=== PATIENT | female | born 1945 | race Caucasian/White ===

== ENCOUNTER 2019-12-10 08:42 | Outpatient (REF) | payer MEDICARE, OTHER, SELFPAY ==
[2019-12-10 10:15] LABS: MANUAL DIFF FLAG NO
[2019-12-10 10:30] LABS: Basophils Absolute Auto 0.1 X10*3/uL (0.0-0.2); Basophils Percent Auto 0.8 % (0-2); Eosinophils Absolute Auto 0.4 X10*3/uL (0.0-0.4); Hematocrit 41.5 % (37-47); Hemoglobin 13.7 g/dl (12.0-16.0); Imm Gran Abs Auto 0.01 X10*3/uL (0.00-0.03); Imm Gran Pct Auto 0.2 % (0.0-0.4); Lymphocytes Percent Auto 32.2 % (20-40); Mean Corpuscular Hemoglobin 30.6 pg (27.0-33.0); Mean Corpuscular Volume 92.6 fL (80-98); Mean Platelet Volume 12.6 fL (9.4-12.3); Monocytes Absolute Auto 0.6 X10*3/uL (0.1-1.2); Monocytes Percent Auto 9.4 % (2-11); Neutrophils Absolute Auto 3.1 X10*3/uL (2.0-8.3); Neutrophils Percent Auto 51.4 % (45-73); Platelet Count 243 X10*3/uL (160-400); Red Blood Count 4.48 X10*6/uL (4.20-5.50); Red Cell Distribution Width 13.7 % (11.0-16.0); White Blood Count 6.1 X10*3/uL (4.8-10.8)
[2019-12-10 11:04] LABS: Alanine Aminotransferase 31 U/L (0-31); Alkaline Phosphatase 142 U/L (39-117); Anion Gap 13 (12-20); Aspartate Amino Transferase 26 U/L (5-31); Bilirubin Total 0.7 mg/dL (0.0-1.0); Blood Urea Nitrogen 16 mg/dL (9-16); Calcium 9.1 mg/dL (8.4-10.2); Carbon Dioxide 28 mmol/L (22-29); Chloride 105 mmol/L (96-108); Cholesterol 242 mg/dL; Estimated Glomerular Filt Rate > 60; Glucose Fasting 93 mg/dL (60-99); HDL Cholesterol 46 mg/dL; LDL Cholesterol Calculated 166 mg/dl; Potassium 4.7 mmol/l (3.3-5.1); Sodium 141 mmol/L (135-145); Total Protein 6.7 g/dL (6.5-8.0); Triglycerides 150 mg/dL
[2019-12-10 11:26] LABS: Thyroid Stimulating Hormone 5.21 mIU/mL (0.32-4.0)
[2019-12-10 15:12] LABS: Estimated Average Glucose 114 mg/dL; Hemoglobin A1c % 5.6 %
== END 2019-12-10 08:43 | disposition home or self-care (01) ==
LOC: HO.10HDL 08:42
PROVIDERS: Visit Provider Nurse Practitioner Family
DX: I10 Essential (primary) hypertension (principal); E78.00 Pure hypercholesterolemia, unspecified; E03.9 Hypothyroidism, unspecified; Z68.30 Body mass index [BMI] 30.0-30.9, adult; Z83.3 Family history of diabetes mellitus
CPT/HCPCS: 36415; 80053; 80061; 83036; 84443; 85025

== ENCOUNTER 2020-05-19 09:42 | Outpatient (REF) | payer MEDICARE, OTHER, SELFPAY ==
[2020-05-19 10:46] LABS: MANUAL DIFF FLAG NO
[2020-05-19 11:00] LABS: Basophils Absolute Auto 0.1 X10*3/uL (0.0-0.2); Eosinophils Absolute Auto 0.4 X10*3/uL (0.0-0.4); Eosinophils Percent Auto 5.1 % (0-4); Hematocrit 42.4 % (37-47); Hemoglobin 13.8 g/dl (12.0-16.0); Imm Gran Abs Auto 0.03 X10*3/uL (0.00-0.03); Imm Gran Pct Auto 0.4 % (0.0-0.4); Lymphocytes Percent Auto 26.8 % (20-40); Mean Corpuscular HGB Conc 32.5 g/dl (31.0-35.0); Mean Corpuscular Hemoglobin 29.9 pg (27.0-33.0); Mean Platelet Volume 12.5 fL (9.4-12.3); Monocytes Absolute Auto 0.7 X10*3/uL (0.1-1.2); Monocytes Percent Auto 9.2 % (2-11); Neutrophils Absolute Auto 4.2 X10*3/uL (2.0-8.3); Neutrophils Percent Auto 57.5 % (45-73); Platelet Count 235 X10*3/uL (160-400); Red Blood Count 4.61 X10*6/uL (4.20-5.50); Red Cell Distribution Width 13.9 % (11.0-16.0); White Blood Count 7.3 X10*3/uL (4.8-10.8)
[2020-05-19 11:25] LABS: Alanine Aminotransferase 28 U/L (0-31); Albumin Level 3.9 g/dL (3.5-5.0); Alkaline Phosphatase 153 U/L (39-117); Anion Gap 15 (12-20); Aspartate Amino Transferase 24 U/L (5-31); Bilirubin Total 0.4 mg/dL (0.0-1.0); Blood Urea Nitrogen 15 mg/dL (9-16); Calcium 9.3 mg/dL (8.4-10.2); Carbon Dioxide 26 mmol/L (22-29); Chloride 105 mmol/L (96-108); Cholesterol 254 mg/dL; Estimated Glomerular Filt Rate > 60; Glucose Fasting 104 mg/dL (60-99); HDL Cholesterol 47 mg/dL; LDL Cholesterol Calculated 172 mg/dl; Potassium 4.6 mmol/L (3.3-5.1); Sodium 141 mmol/L (135-145); Triglycerides 177 mg/dL
[2020-05-19 11:26] LABS: Free T4 (Free Thyroxine) 0.98 ng/dL (0.71-1.85); Thyroid Stimulating Hormone 2.29 uIU/mL (0.32-4.0)
== END 2020-05-19 09:43 | disposition home or self-care (01) ==
LOC: HO.10HDL 09:42
PROVIDERS: Visit Provider Nurse Practitioner Family
DX: E03.9 Hypothyroidism, unspecified (principal); I10 Essential (primary) hypertension; E78.00 Pure hypercholesterolemia, unspecified
CPT/HCPCS: 36415; 80053; 80061; 84439; 84443; 85025

== ENCOUNTER 2020-11-03 10:57 | Outpatient (REF) | payer MEDICARE, OTHER, SELFPAY ==
--- NOTE | ~2020-11-03 | MM_ITS ---
EXAMINATION: MM SCREENING DIGITAL BREAST TOMOSYNTHESIS, BILATERAL CLINICAL INFORMATION: Screening. Asymptomatic. The lifetime risk of breast cancer based on the Tyrer-Cuzick Model is 3.2%. COMPARISON: Mammography: September 21, 2019 and studies dating back to July 09, 2011 TECHNIQUE: Digital breast tomosynthesis is performed in both the craniocaudal and mediolateral oblique views along with computer-aided detection (CAD). Synthesized 2D images are generated from the tomosynthesis. FINDINGS: The breasts are almost entirely fatty (ACR BI-RADS breast composition Category a). There are no significant masses, abnormal calcifications, or other abnormalities. MM/MM tomosynthesis screening BI IMPRESSION: There are no significant changes from prior study. ASSESSMENT: BI-RADS 1: Negative RECOMMENDATION: Routine annual mammography screening. This patient's information was entered into a reminder system with a target due date for their next mammogram.
== END 2020-11-03 10:58 | disposition home or self-care (01) ==
LOC: HO.MAMMO 10:57
PROVIDERS: PCP Nurse Practitioner; Visit Provider Nurse Practitioner
DX: Z12.31 Encounter for screening mammogram for malignant neoplasm of breast (principal)
CPT/HCPCS: 77063; 77067

== ENCOUNTER 2021-01-25 09:19 | Outpatient (REF) | payer MEDICARE, OTHER, SELFPAY ==
[2021-01-25 10:36] LABS: Anion Gap 9 (12-20); Blood Urea Nitrogen 18 mg/dL (9-16); Calcium 9.6 mg/dL (8.4-10.2); Carbon Dioxide 30 mmol/L (22-29); Chloride 108 mmol/L (96-108); Cholesterol 248 mg/dL; Estimated Glomerular Filt Rate > 60; Glucose Fasting 94 mg/dL (60-99); HDL Cholesterol 46 mg/dL; LDL Cholesterol Calculated 170 mg/dl; Potassium 4.7 mmol/L (3.3-5.1); Sodium 142 mmol/L (135-145); Triglycerides 161 mg/dL
[2021-01-25 10:42] LABS: ~HepC Num1 0.21 S/CO (0.00-0.79); ~Hepatitis C Antibody Nonreactive (Nonreactive)
== END 2021-01-25 09:20 | disposition home or self-care (01) ==
LOC: HO.10HDL 09:19
PROVIDERS: Visit Provider Nurse Practitioner
DX: I10 Essential (primary) hypertension (principal); E03.9 Hypothyroidism, unspecified; Z11.59 Encounter for screening for other viral diseases
CPT/HCPCS: 36415; 80048; 80061; 84443; 86803

== ENCOUNTER 2021-07-25 09:12 | Outpatient (REF) | payer MEDICARE, OTHER, SELFPAY ==
[2021-07-25 11:04] LABS: Anion Gap 14 (12-20); Blood Urea Nitrogen 19 mg/dL (9-16); Calcium 9.6 mg/dL (8.4-10.2); Carbon Dioxide 27 mmol/L (22-29); Chloride 103 mmol/L (96-108); Cholesterol 273 mg/dL; Estimated Glomerular Filt Rate > 60; Glucose Random 103 mg/dL (60-115); HDL Cholesterol 51 mg/dL; LDL Cholesterol Calculated 192 mg/dl; Potassium 4.9 mmol/L (3.3-5.1); Sodium 139 mmol/L (135-145); Triglycerides 152 mg/dL
== END 2021-07-25 09:13 | disposition home or self-care (01) ==
LOC: HO.10HDL 09:12
PROVIDERS: Visit Provider Nurse Practitioner
DX: I10 Essential (primary) hypertension (principal); E78.5 Hyperlipidemia, unspecified
CPT/HCPCS: 36415; 80048; 80061

== ENCOUNTER 2021-12-05 09:07 | Outpatient (REF) | payer MEDICARE, OTHER, SELFPAY ==
--- NOTE | ~2021-12-05 | MM_ITS ---
EXAMINATION: MM SCREENING DIGITAL BREAST TOMOSYNTHESIS, BILATERAL CLINICAL INFORMATION: Screening. Asymptomatic. The lifetime risk of breast cancer based on the Tyrer-Cuzick Model is 2.8%. COMPARISON: Mammography: November 03, 2020 and studies dating back to July 26, 2015 TECHNIQUE: Digital breast tomosynthesis is performed in both the craniocaudal and mediolateral oblique views along with computer-aided detection (CAD). Synthesized 2D images are generated from the tomosynthesis. FINDINGS: There are scattered areas of fibroglandular density (ACR BI-RADS breast composition Category b). There are no significant masses, abnormal calcifications, or other abnormalities. MM/MM tomosynthesis screening BI IMPRESSION: No significant changes ASSESSMENT: BI-RADS 1: Negative RECOMMENDATION: Routine annual mammography screening. This patient's information was entered into a reminder system with a target due date for their next mammogram.
== END 2021-12-05 09:08 | disposition home or self-care (01) ==
LOC: HO.MAMMO 09:07
PROVIDERS: Visit Provider Nurse Practitioner
DX: Z12.31 Encounter for screening mammogram for malignant neoplasm of breast (principal)
CPT/HCPCS: 77063; 77067

== ENCOUNTER 2022-01-31 11:44 | Outpatient (REF) | payer MEDICARE, OTHER, SELFPAY ==
[2022-01-31 13:59] LABS: Alanine Aminotransferase 28 U/L (0-31); Albumin Level 4.4 g/dL (3.5-5.0); Alkaline Phosphatase 149 U/L (39-117); Aspartate Amino Transferase 24 U/L (5-31); Bilirubin Direct 0.3 mg/dL (0.0-0.5); Total Protein 7.6 g/dL (6.5-8.0)
[2022-01-31 14:57] LABS: Bilirubin Total 0.8 mg/dL (0.0-1.0)
== END 2022-01-31 11:45 | disposition home or self-care (01) ==
LOC: HO.10HDL 11:44
PROVIDERS: Visit Provider Nurse Practitioner
DX: E78.5 Hyperlipidemia, unspecified (principal)
CPT/HCPCS: 36415; 80076

== ENCOUNTER 2022-02-19 08:35 | Outpatient (REF) | payer MEDICARE, OTHER, SELFPAY ==
[2022-02-19 11:48] LABS: Alkaline Phosphatase 144 U/L (39-117); Gamma Glutamyl Transpeptidase 28 U/L (7-33); Phosphorus 3.4 mg/dL (2.7-4.5)
[2022-02-19 12:07] LABS: Thyroid Stimulating Hormone 2.57 uIU/mL (0.32-4.0); Vitamin D 25-OH Total 33.7 ng/mL (>30)
[2022-02-20 04:59] LABS: HBsAGNum1 0.27 S/CO (0.00-0.99); Hepatitis B Surface Antigen Negative (Negative); ~HepC Num1 0.16 S/CO (0.00-0.79); ~Hepatitis C Antibody Nonreactive (Nonreactive)
[2022-02-20 11:24] LABS: Calcium (PTHI) 9.5 mg/dL (8.6-10.4); PTHI 49 pg/mL (16-77)
[2022-02-22 21:33] LABS: Alkaline Phosphatase Bone 19.1 mcg/L (5.6-29.0)
== END 2022-02-19 08:36 | disposition home or self-care (01) ==
LOC: HO.10HDL 08:35
PROVIDERS: Visit Provider Nurse Practitioner
DX: R74.8 Abnormal levels of other serum enzymes (principal)
CPT/HCPCS: 36415; 82306; 82977; 83970; 84075; 84100; 84443; 86803; 87340

== ENCOUNTER 2022-07-02 09:45 | Outpatient (REF) | payer MEDICARE, OTHER, SELFPAY ==
[2022-07-02 11:51] LABS: Alkaline Phosphatase 125 U/L (39-117); Anion Gap 11 (12-20); Blood Urea Nitrogen 16 mg/dL (9-16); Calcium 10.3 mg/dL (8.4-10.2); Carbon Dioxide 29 mmol/L (22-29); Chloride 107 mmol/L (96-108); Cholesterol 139 mg/dL; Estimated Glomerular Filt Rate > 60; Glucose Fasting 89 mg/dL (60-99); HDL Cholesterol 47 mg/dL; LDL Cholesterol Calculated 71 mg/dl; Potassium 4.7 mmol/L (3.3-5.1); Sodium 142 mmol/L (135-145); Triglycerides 106 mg/dL
== END 2022-07-02 09:46 | disposition home or self-care (01) ==
LOC: HO.WFDLDS 09:45
PROVIDERS: Visit Provider Nurse Practitioner
DX: Z13.89 Encounter for screening for other disorder (principal)
CPT/HCPCS: 36415; 80048; 80061; 84075

== ENCOUNTER 2022-12-11 09:13 | Outpatient (REF) | payer MEDICARE, OTHER, SELFPAY | END 2022-12-11 09:14 | disposition home or self-care (01) | LOC: HO.MAMMO 09:13 | PROVIDERS: PCP Nurse Practitioner; Visit Provider Nurse Practitioner | DX: Z12.31 Encounter for screening mammogram for malignant neoplasm of breast (principal) | CPT/HCPCS: 77063; 77067 ==

== ENCOUNTER → 2022-12-11 09:15 | Outpatient (BNV) | payer MEDICARE, OTHER, SELFPAY | PROVIDERS: PCP Nurse Practitioner; Visit Provider Radiology Diagnostic Radiology | DX: Z12.31 Encounter for screening mammogram for malignant neoplasm of breast (principal) | CPT/HCPCS: 77063; 77067 ==

== ENCOUNTER 2022-12-30 11:36 | Outpatient (REF) | payer MEDICARE, OTHER, SELFPAY ==
[2022-12-30 13:34] LABS: Alanine Aminotransferase 18 U/L (0-31); Alkaline Phosphatase 148 U/L (39-117); Anion Gap 11 (12-20); Aspartate Amino Transferase 23 U/L (5-31); Bilirubin Total 0.9 mg/dL (0.0-1.0); Blood Urea Nitrogen 17 mg/dL (9-16); Calcium 10.4 mg/dL (8.4-10.2); Carbon Dioxide 29 mmol/L (22-29); Chloride 107 mmol/L (96-108); Cholesterol 150 mg/dL (<200); Estimated Glomerular Filt Rate > 60; Glucose Random 95 mg/dL (60-115); HDL Cholesterol 50 mg/dL (>40); LDL Cholesterol Calculated 79 mg/dL (<100); Potassium 4.8 mmol/L (3.3-5.1); Sodium 142 mmol/L (135-145); Total Protein 7.6 g/dL (6.5-8.0); Triglycerides 109 mg/dL (<150)
== END 2022-12-30 11:37 | disposition home or self-care (01) ==
LOC: HO.10HDL 11:36
PROVIDERS: Visit Provider Nurse Practitioner
DX: I10 Essential (primary) hypertension (principal); E78.5 Hyperlipidemia, unspecified
CPT/HCPCS: 36415; 80053; 80061

== ENCOUNTER 2023-02-06 11:10 | Outpatient (REF) | payer MEDICARE, OTHER, SELFPAY ==
[2023-02-07 11:53] LABS: Calcium, Ionized 5.3 mg/dL (4.7-5.5)
== END 2023-02-06 11:11 | disposition home or self-care (01) ==
LOC: HO.10HDL 11:10
PROVIDERS: Visit Provider Nurse Practitioner
DX: E83.52 Hypercalcemia (principal)
CPT/HCPCS: 36415; 82330

== ENCOUNTER 2023-07-18 10:31 | Outpatient (REF) | payer MEDICARE, OTHER, SELFPAY ==
[2023-07-18 14:18] LABS: Anion Gap 13 (12-20); Blood Urea Nitrogen 17 mg/dL (9-16); Calcium 10.1 mg/dL (8.4-10.2); Carbon Dioxide 27 mmol/L (22-29); Chloride 107 mmol/L (96-108); Cholesterol 151 mg/dL (<200); Estimated Glomerular Filt Rate > 60; Glucose Random 108 mg/dL (60-115); HDL Cholesterol 48 mg/dL (>40); LDL Cholesterol Calculated 74 mg/dL (<100); Potassium 4.9 mmol/L (3.3-5.1); Sodium 142 mmol/L (135-145); Triglycerides 145 mg/dL (<150)
[2023-07-18 14:21] LABS: Thyroid Stimulating Hormone 1.15 uIU/mL (0.32-4.0)
== END 2023-07-18 10:32 | disposition home or self-care (01) ==
LOC: HO.10HDL 10:31
PROVIDERS: Visit Provider Nurse Practitioner
DX: E03.9 Hypothyroidism, unspecified (principal); I10 Essential (primary) hypertension
CPT/HCPCS: 36415; 80048; 80061; 84443

== ENCOUNTER 2023-12-17 09:35 | Outpatient (REF) | payer MEDICARE, OTHER, SELFPAY ==
--- NOTE | ~2023-12-17 | MM_ITS ---
EXAMINATION: MM SCREENING DIGITAL BREAST TOMOSYNTHESIS, BILATERAL CLINICAL INFORMATION: Screening. Asymptomatic. COMPARISON: Mammography: Comparison is made with available priors TECHNIQUE: Digital breast mammography with tomosynthesis is performed in both the craniocaudal and mediolateral oblique views along with computer-aided detection (CAD). FINDINGS: There are scattered areas of fibroglandular density (ACR BI-RADS breast composition Category b). There are no significant masses, abnormal calcifications, or other abnormalities. MM/MM tomosynthesis screening BI IMPRESSION: No mammographic evidence of malignancy. ASSESSMENT: BI-RADS BI-RADS 1 - Negative RECOMMENDATION: Routine annual mammography screening. 1 year F/U This examination should not preclude the clinical evaluation of a suspicious palpable abnormality. This patient's information was entered into a reminder system with a target due date for their next mammogram. Electronically signed by: Peyton Dupree DO 12/26/2023 08:14 AM JUVENCIO
== END 2023-12-17 09:36 | disposition home or self-care (01) ==
LOC: HO.MAMMO 09:35
PROVIDERS: PCP Nurse Practitioner; Visit Provider Nurse Practitioner
DX: Z12.31 Encounter for screening mammogram for malignant neoplasm of breast (principal)
CPT/HCPCS: 77063; 77067

== ENCOUNTER → 2023-12-17 09:45 | Outpatient (BNV) | payer MEDICARE, OTHER, SELFPAY | PROVIDERS: PCP Nurse Practitioner; Visit Provider Internal Medicine | DX: Z12.31 Encounter for screening mammogram for malignant neoplasm of breast (principal) | CPT/HCPCS: 77063; 77067 ==

== ENCOUNTER 2024-01-22 11:46 | Outpatient (REF) | payer MEDICARE, OTHER, SELFPAY ==
[2024-01-22 14:13] LABS: Anion Gap 11 (12-20); Blood Urea Nitrogen 21 mg/dL (9-16); Calcium 9.9 mg/dL (8.4-10.2); Carbon Dioxide 27 mmol/L (22-29); Chloride 108 mmol/L (96-108); Estimated Glomerular Filt Rate > 60; Glucose Random 95 mg/dL (60-115); Sodium 142 mmol/L (135-145)
[2024-01-22 14:14] LABS: Estimated Average Glucose 126 mg/dL; Hemoglobin A1C 146.6833 umol/L; Total Hemoglobin (HGBA1C) 3507.5334 umol/L
== END 2024-01-22 11:47 | disposition home or self-care (01) ==
LOC: HO.WFDLDS 11:46
PROVIDERS: Visit Provider Nurse Practitioner
DX: I10 Essential (primary) hypertension (principal); R73.03 Prediabetes
CPT/HCPCS: 36415; 80048; 83036

== ENCOUNTER 2024-07-08 10:05 | Outpatient (REF) | payer MEDICARE, OTHER, SELFPAY ==
--- OUTSIDE RECORDS SUMMARY | 2024-07-08 10:28 | XMS_ITS ---
Author Organization [facility] Address [address] [place] [address] Care Team Providers Care Agriculture Specialist Name Role Phone Lissy Carey Primary Care Provider Tung Green [phone] Allergies Allergen (clinical drug ingredient) Drug/Non Drug Allergy documented on EMR Reaction Allergy Type Onset Date Status amoxicillin Amoxicillin Unknown Drug Allergy Act zohra insect stings (uncoded) Unknown Allergy Active REASON FOR VISIT patient presents today for colon screening Medications Medication SIG (Take, Route, Frequency, Duration) Notes Start Date End Date Status LORazepam 0.5 MG TAKE 1 TABLET DAILY NEEDED Oral for 90 Days Active Fiber Active Atorvastatin Calcium 40 MG 1 tablet Orally Once a day Active Omeprazole 40 MG TAKE 1 CAPSULE DAILY Oral for 90 Days Active Synthroid 125 MCG TAKE 1 TABLET DAILY Oral for 90 Days Active Valsartan 320 MG TAKE 1 TABLET DAILY Oral for 90 Days Active Multi Vitamin/Minerals women 50 + Active Calcium + D 2per day Active Vitamin B12 Active Qunol Ultra CoQ10 Ac tive Equate Plus vision formula 50+ Active PreserVision AREDS 2 Active Allergy Active Social History Alcohol Screen Question Answer Notes Did you have a drink contain ing alcohol in the past year? Yes How often did you have a dri nk containing alcohol in the past year? 2 to 3 times a week (3 points) How many drinks did you have on a typical day when you were drinking in the past year? 1 or 2 drinks (0 point) How often did you have 6 or more drinks on one occasion in the past year? Never (0 point) Points 3 Interpretation Positive Section Notes: Nonsmoker; occasional alcoho l Vital Signs Blood pressure systolic 111 mm Hg 07/09/19 25 Blood pressure diastolic 77 mm Hg 025 Height 62 in 07/08/2024 Weight 168 lbs 07/08/2024 BMI 30.72 kg/m2 07/08/2024 Procedures Procedure Date Ordered Date Performed Result Body Sit e COLONOSCOPY 07/08/2024 N/A Encounters Encounter Location Date Provider Diagnosis [facility] [address] [place] [address] 07/08/2024 Tung Allen History of adenomato us polyp of colon Z86.010 ; Encounter for screening for malignant neoplasm of colon Z12.11 and Preprocedural examination Z01.818 Assessments Encounter Date Diagnosis (ICD Code) Assessment Notes Treatment Notes Treatment Clinical Notes Section Notes 07/08/2024 History of adenomatous polyp of colon (ICD-10 - Z86.010) Overall, Vanessa appears quite well. She is not having any new or worrisome GI complaints. I did recommend a follow-up colonoscopy for further screening given her history of a previous tubular adenoma and her last colonoscopy being over 5 years ago. We did review the rationale for this in regard to colon cancer prevention. Full consent has been obtained for this, including risks of bleeding and perforation. The procedure will be done with monitored anesthesia care. Vanessa was comfortable with this plan. Thank you again for allowing me to participate in Vanessa's care. I shall continue to keep you advised of her progress. 07/08/2024 Encounter for screening for malignant neoplasm of colon (ICD-10 - Z12.11) Overall, Vanessa appears quite well. She is not having any new or worrisome GI complaints. I did recommend a follow-up colonoscopy for further screening given her history of a previous tubular adenoma and her last colonoscopy being over 5 years ago. We did review the rationale for this in regard to colon cancer prevention. Full consent has been obtained for this, including risks of bleeding and perforation. The procedure will be done with monitored anesthesia care. Vanessa was comfortable with this plan. Thank you again for allowing me to participate in Vanessa's care. I shall continue to keep you advised of her progress. 07/08/2024 Preprocedural examination (ICD-10 - Z01.818) Overall, Vanessa appears quite well. She is not having any new or worrisome GI complaints. I did recommend a follow-up colonoscopy for further screening given her history of a previous tubular adenoma and her last colonoscopy being over 5 years ago. We did review the rationale for this in regard to colon cancer prevention. Full consent has been obtained for this, including risks of bleeding and perforation. The procedure will be done with monitored anesthesia care. Vanessa was comfortable with this plan. Thank you again for allowing me to participate in Vanessa's care. I shall continue to keep you advised of her progress. Plan Of Treatment Pending Test Test Name Order Date COLONOSCOPY 07/08/2024 Next Appt Details Provider Name:Tung Allen , 10/06/2024 07:30:00 AM, [address] [place] [address], [address], [place], [address], Progress Notes * RADHIKA OSMANOB:1945 (78 yo F)Acc No.[id number]:07/08/2024 Progress Notes Patient:?VANESSA OSMAN Provider:?Tung Allen MD :1945???Age:78 Y???Sex:Female D ate:07/08/2024 Address:[address] [place], [place] [id number] Pcp:Lissy Carey Subjective: * Chief Complaints: * ???1. Patient presents today for colon screening. * HPI: ???incontinence:? I saw Vanessa in the office today for evaluation of her personal history of a tubular adenoma of the colon and need for colorectal cancer screening. I last saw Vanessa in 2019, at which time she underwent a follow-up screening colonoscopy that was negative for any recurrent polyps. She did have a tubular adenoma removed in 2011. She presently feels very well. She enjoys a good appetite and denies any significant heartburn or dysphagia. Her bowel movements have been regular and without any signs of bleeding. She denies abdominal pain, unintentional weight loss, nor jaundice. She denies any known family history of colorectal cancer. * Medical History:?HTN, Hyperl ipidemia, Gallstones found incidentally on U/S done for elevated LFT's--reviewed again at the 07/07/18 OV, Occasional GERD-uses Prilosec occasionally, Denies VA,DM,CVA,Lung disease,renal disease, Hypothyroidism, Screening colonoscopy January 2012 with a removal of a small tubular adenoma and hyperplastic polyp, Negative screening colonoscopy in 2019. * Surgical History:?Partial th yroidectomy , teeth extractions . * Family History:?Father: dece ased.?Mother: , Had colon cancer in her 90's.? * Social History:?Tobacco Use:?Tobacco Use/Smoking?Are you a: nonsmoker.?Drugs/Alcohol:?Alcohol Screen?Did you have a drink containing alcohol in the past year??Yes,?How often did you have a drink containing alcohol in the past year??2 to 3 times a week (3 points),?How many drinks did you have on a typical day when you were drinking in the past year??1 or 2 drinks (0 point),?How often did you have 6 or more drinks on one occasion in the past year??Never (0 point),?Points?3,?Interpretation?Positive.?Miscellaneous:?Marital status: . Occupation: retired. ???Nonsmoker; occasional alcohol. * Medications:?Taking Allergy , Taking PreserVision AREDS 2 , Taking Equate Plus , Notes to Pharmacist: vision formula 50+, Taking Qunol Ultra CoQ10 , Taking Vitamin B12 , Taking Calcium + D , Notes to Pharmacist: 2per day, Taking Multi Vitamin/Minerals , Notes to Pharmacist: women 50 +, Taking Atorvastatin Calcium 40 MG Tablet 1 tablet Orally Once a day , Taking Fiber , Taking Valsartan 320 MG Tablet TAKE 1 TABLET DAILY Oral , Taking Synthroid 125 MCG Tablet TAKE 1 TABLET DAILY Oral , Taking Omeprazole 40 MG Capsule Delayed Release TAKE 1 CAPSULE DAILY Oral , Taking LORazepam 0.5 MG Tablet TAKE 1 TABLET DAILY NEEDED Oral , Discontinued Levothroid .125 mg 1 po qd , Discontinued hydroCHLOROthiazide 25mg 1 po qd , Discontinued Losartan Potassium 25 MG Tablet 1 tablet Orally Once a day , Discontinued Vitamin B Complex , Discontinued Vitamin D , Medication List reviewed and reconciled with the patient * Allergies:?Amoxicillin, inse ct stings. Objective: * Vitals:?Wt:168lbs, Ht: 62 in , BMI: 30.72 Index, BP:111/77mm Hg, Wt-k.2. Assessment: * Assessment: 1.?History of adenomatous po lyp of colon - Z86.010 (Primary)???2.?Encounter for screening for malignant neoplasm of colon - Z12.11???3.?Preprocedural examination - Z01.818??? Overall, Vanessa appears quit e well. She is not having any new or worrisome GI complaints. I did recommend a follow-up colonoscopy for further screening given her history of a previous tubular adenoma and her last colonoscopy being over 5 years ago. We did review the rationale for this in regard to colon cancer prevention. Full consent has been obtained for this, including risks of bleeding and perforation. The procedure will be done with monitored anesthesia care. Vanessa was comfortable with this plan. Thank you again for allowing me to participate in Vanessa's care. I shall continue to keep you advised of her progress. Plan: * Treatment: 2.?Encounter for screening for malignant neoplasm of colon?Procedure: COLONOSCOPY* with MACsched for 10/06/24 at 7:30 ammiralax * Procedure Codes:?55428 DIAGN OSTIC COLONOSCOPY * Preventive Medicine:? ??Urinary Incontinence:?Urinary Incontinence?Assessment:?Absent,?Plan of care documented:?No, reason not specified.? ??Screenings:?Fall Risk Screening?Fall Risk Assessment:?No falls in the past year,?Screening:?No falls in the past year,?Assessment:?Not performed, no reason specified,?Plan of Care:?Not documented, no reason specified.? * * The named appointment provid er may or may not be the originator of this progress note, and it is not deemed complete until electronically signed by the appointment provider. Sign off status: Pending * Provider:?Tung Allen MD Date:? 025 Generated for Tatum leone/Donny/eTransmitting on:?07/08/2024 10:28 AM EDT History and Physical Notes * HPI (History of Present Illness) Category Sub-Category Detail Notes Category Not es incontinence I saw Vanessa in the office today for evaluation of her personal history of a tubular adenoma of the colon and need for colorectal cancer screening. I last saw Vanessa in 2018, at which time she underwent a follow-up screening colonoscopy that was negative for any recurrent polyps. She did have a tubular adenoma removed in 2011. She presently feels very well. She enjoys a good appetite and denies any significant heartburn or dysphagia. Her bowel movements have been regular and without any signs of bleeding. She denies abdominal pain, unintentional weight loss, nor jaundice. She denies any known family history of colorectal cancer.
--- OUTSIDE RECORDS SUMMARY | 2024-07-08 10:28 | XMS_ITS | Data Portability ---
Author Organization [place] - [employer], [employer], [facility] Address [address] [place] [address] Care Team Providers Care Pill Maker Name Role Phone ROSE PÉREZ Referring Provider Unavailable LISSY FRANCO Primary Care Provider LAKIA BARNHART Store Team Leader Assessment No assessment recorded. Plan of Treatment Reminders Order Date Submit Date Provider Last Modified By Organization Details Last Modified Time Details Appointments ESTABLISH ED OV 30 2025 02:15P M DR ROSE PÉREZ Not available Not available Not available Lab None recorded. Referral safety glass installer referral - First avail provider for [place] with [place] allergies . Would like to be tested. 2022 023 RADHA Chew MD ([facility] [place]), [address] [facility] [facility], [address], [place], [address], 09/11/2022 17:00:58 Procedures None recorded. Surgeries None recorded. Imaging None recorded. Medication Orders None recorded. Patient TargetsNo targets recorded. Patient Instructions Encounter Date Encounter Id Patient Instructions Last Modified By Organization Details Last Modified Time 03/31/2024 [id number] medical record request* - I am specifically missing her AWE with labs visit. Please send this record to me. Thank you very much. Dr. Rose martinez Not available 06/14/2024 09:27:06 We discussed you r hypertension: - Continue taking Valacartan 05/06 as prescribed for blood pressure management. - Your blood pressure readings in the office may be elevated due to white coat syndrome. Continue monitoring your blood pressure at home and share any concerning trends with your primary care provider (PCP) in [place]. We discussed your hyperlipidemia: - Continue taking Atorvastatin 40 mg as prescribed for cholesterol management. We discussed your hypothyroidism: - Continue taking Levothyroxine 125 mcg as prescribed. It appears you are using the generic version, which is cost-effective. We discussed your anxiety: - You have a prescription for Lorazepam, which you use occasionally. No changes were made to this medication. We discussed your bone health: - Your most recent bone density scan from January 2021 showed mild to moderate osteopenia. No osteoporosis was noted. - Your calcium levels have been normal since discontinuing calcium supplements, and no concerns about hyperparathyroidism were identified. Continue following your current regimen. We discussed your general health: - Your lungs are clear, and your heart rhythm is regular with a slight murmur, which is expected for your age. - There is no swelling in your ankles. Maintaining a healthy weight and staying active are important for your overall health. Follow-up: - Continue care with your PCP in [place], including routine monitoring of your thyroid, cholesterol, and bone health. - Your next mammogram is due in November, as you have them annually. Ensure this is scheduled with your PCP. - If you experience any new or worsening symptoms, please contact our office or your PCP. [email or web address] Not available 03/31/2024 17:22:03 Reason for Referral Guest Relations Associate Referral for Envir onmental allergy First avail provider for [place] with [place] allergies. Would like to be tested. Referring Physician: Rose Pérez, Family Medicine, Encounter Date: 09/11/2022 Problems Name Problem SNOMED Code Status Onset Date Resolution Date Notes Provider Name and Address Organization Details Recorded Time Hyperlipidemia 72799676 Active [address], [place], [address], [facility], [facility] 3 15:18:32 Hypothyroidism 70532469 Active [address], [place], [address], [facility], [facility] 3 15:18:32 Hypertensive disorder 62897786 Active [address], [place], [address], [facility], [facility] 3 15:18:32 Anxiety disorder 926700931 Active [address], [place], [address], [facility], [facility] 3 15:18:39 Environmental allergy 341017779 Active 2022 Season al, worse in [place]. [address], [place], [address], [facility], [facility] 3 15:22:22 Problem Notes None recorded. Procedures Surgical History Date Name Laterality Status Provider Name and Address Organization Details Recorded Time 12/12/19 24 Date of Last Mammogram completed Grace Mattson [facility] 03/31/2024 14:44:47 11/18/19 24 mammography completed [address], [place], [address], [facility], [facility] 03/31/2024 15:04:36 01/18/20 21 screening for osteoporosis completed Rose [address], [place], [address], [facility], [facility] 03/31/2024 15:07:00 08/17/18 80 thyroidectomy completed Jessica Villarreal [facility] 09/11/2022 14:36:02 Imaging Results None recorded. Procedure Notes None recorded. Medical Equipment None Reported. Allergies Allergen ID Allergen Name Allergen Category Reaction Reaction Severity Criticality Documentation Date Start Date Code Code System Note Provider Name and Address Organization Details Recorded Time 4902986 amlodipin e medicatio n edema moderate high 09/11/2022 [address], [place], [address], [facility], [facility] 3 15:50:32 5685753 amoxicill in medicatio n itching rash Not available Not available Not available 09/11/2022 723 RxNorm Jessica perez [facility], [facility] 3 14:14:09 Medications Name Sig Start Date Stop Date Status Note LastModified by Organization Details LastModified Time atorvastati n 40 mg tablet active Not Available Not Available Not Available omeprazole 40 mg capsule,del ayed release Take 1 capsule every day by oral route. active Not Available Not Available No t Available lorazepam 0.5 mg tablet Take 1 tablet as needed by oral route as needed. active Not Available Not Available No t Available levothyroxi ne 125 mcg tablet Take 1 tablet every day by oral route. active Not Available Not Available No t Available valsartan 320 mg tablet active Not Available Not Available Not Available tacrolimus 0.03 % topical ointment APPLY A THIN LAYER TO THE AFFECTED AREA(S) BY TOPICAL ROUTE 2 TIMES PER DAY ; RUB IN GENTLY AND COMPLETEL Y active Not Available Not Available No t Available mupirocin 2 % topical ointment active Not Available Not Available Not Available amlodipine 10 mg-valsarta n 160 mg tablet 09/11 completed Not Available Not Available Not Available amlodipine 5 mg-valsarta n 160 mg tablet 09/11 completed Not Available Not Available Not Available Vitals Date Recorded Body weight Body mass index (BMI) Body height Respiratory rate Body temperature Heart rate Oxygen saturation Oxygen saturation in Arterial blood by Pulse oximetry Systolic blood pressure Diastolic blood pressure Provider Name and Address Organization Details Last Updated DateTime 3 95192.5 5 g 30.5 kg/m2 158.75 cm 16 /min 98 [degF] 78 /min 97 % 97 % 136 mm[Hg] 64 mm[Hg] Jessica elliott [facility], [facility] 3 14:26:03 Date Recorded Body weight Body mass index (BMI) Body height Body temperature Heart rate Oxygen saturation Oxygen saturation in Arterial blood by Pulse oximetry Systolic blood pressure Diastolic blood pressure Provider Name and Address Organization Details Last Updated DateTime 5 39261.6 7 g 30.3 kg/m2 158.75 cm 97.4 [degF] 71 /min 97 % 97 % 132 mm[Hg] 74 mm[Hg] Grace Mattson [facility], [facility] 14:48:30 Social History Question Answer Notes LastModified by Organizat ion Details LastModified Time Tobacco Smoking Status Never Smoker Jessica Villarreal [facility] [place] - [facility], [facility] 09/11/2022 14:14:10 Do You Have An Advance Directive? Yes Information not available 09/11/2022 Is Your Home Air Conditioned? Yes Information not available 09/11/2022 Are You Currently Sexually Active With Anyone Who Has Traveled (within The Last 12 Weeks) To A Zika-affected Area? No Information not available 09/11/2022 Is Blood Transfusion Acceptable In An Emergency? Yes Information not available 09/11/2022 What Is Your Level Of Caffeine Consumption? Moderate Information not available 09/11/2022 In The 14 Days Before Symptom Onset, Have You Had Close Contact With A Laboratory-confir med COVID-19 While That Case Was Ill? No Information not available 09/11/2022 In The 14 Days Before Symptom Onset, Have You Had Close Contact With A Person Who Is Under Investigation For COVID-19 While That Person Was Ill? No Information not available 09/11/2022 Have You Been To An Area Known To Be High Risk For COVID-19? No Information not available 09/11/2022 What Type Of Diet Are You Following? REGULAR Information not available 09/11/2022 Have You Processed Blood Or Body Fluids From An Ebola Virus Disease Patient Without Appropriate PPE? No Information not available 09/11/2022 Do You Reside In Or Have You Traveled To An Area Where Ebola Virus Transmission Is Active? No Information not available 09/11/2022 What Is The Highest Grade Or Level Of School You Have Completed Or The Highest Degree You Have Received? AI20920-8 Information not available 09/11/2022 Do You Have An Electrostatic Air Filter? No Information not available 09/11/2022 Have There Been Any Changes To Your Family Or Social Situation? No Information no t available 09/11/2022 What Is The Fluoride Status Of Your Home? Fluoridated Information not available 09/11/2022 Which Of Your Hands Is Dominant? Right Information not available 09/11/2022 Do You Have A Humidifier? No Information not available 09/11/2022 Where Do You Live? [facility] Information not available 09/11/2022 Alcohol Use 1-2 Per Month Informati on not available 09/11/2022 Do You Smoke? No Informatio n not available 09/11/2022 Do You Have A Medical Power Of Air Liaison And Special Staff? Yes Information not available 09/11/2022 What Was The Date Of Your Most Recent Tobacco Screening? 03/31/2024 [place] Information not available 03/31/2024 What Is Your Relationship Status? Information not available 09/11/2022 Do You Use Your Seat Belt Or Car Seat Routinely? Yes Information not available 09/11/2022 Are You Sexually Active? Yes Information not available 09/11/2022 Do You Have Smoke And Carbon Monoxide Detectors In Your Home? Yes Information not available 09/11/2022 Are You Passively Exposed To Smoke? No Information no t available 09/11/2022 Are There Any Smokers In Your House? No Information not available 09/11/2022 Do You Use Sunscreen Routinely? Yes Information not available 09/11/2022 Do You Have Any Dietary Restrictions? No Information not available 09/11/2022 Sex: Female Functional Status Question Answer Note LastModified by Organizat ion Details LastModified Time How many times per week do you consume alcohol? 1-2 times per week Information not available 09/11/2022 Do you use any illicit or recreational drugs? No Information not available 09/11/2022 What is your level of alcohol consumption? Occasional Information not available 09/11/2022 Do you or have you ever used smokeless tobacco? Never used smokeless tobacco Information not available 09/11/2022 Have you been exposed to chemicals or toxins? No Information not available 09/11/2022 Do you have transportation difficulties? No Information not available 09/11/2022 Are you able to care for yourself? Yes Information n ot available 09/11/2022 What is your exercise level? Moderate Information not available 09/11/2022 Mental Status None recorded. Family History Nothing Reported. Medical History Condition Response Amputation (location) N Arthritis Y Diabetes N Allergies (other than meds) Y Gynecological History Statement/Question Response Menses Monthly N STIs/STDs N If Post Menopausal, Age at Menopause 54 Date of Last Mammogram 12/12/2023 Age at First Child 26 Obstetrics History GPAL:G 0 P 0 0 0 0 Immunizations Vaccine Type Date Status Note Provider Nam e and Address Organization Details Recorded Time influenza, unspecified formulation 11/20/2023 completed Grace Mattson [place], [place] [facility] 03/31/2024 14:44:18 Past Encounters Encounter ID Performer Location Encounter Start Date Encounter Closed Date Diagnosis/Indication Diagnosis SNOMED-CT Code Diagnosis ICD10 Code Diagnosis Note [id number] Rose Pérez MD [address] [address] 09/11/2022 14:05:57 09/11/2022 16:05:45 Environmental allergy 222495445 T78.49XA New patient today with [place] allergies. Would like to be tested. Hypertensive disorder 38 620032 I10 New patient today. Blood pressure under control on current medication , continue Hyperlipidemia 76905436 E78.5 current LDL 71 on ator 40. Hypothyroidism 27531582 E03.9 New patient to [place] today, no change to current thyroid medication [id number] Rose Pérez MD [address] [address] 03/31/2024 14:08:11 03/31/2024 15:28:04 Patient medical record not available [id number] Z76.89 - Patient's medical records from [facility] are not currently available. - Initiated a request for missing medical records from Dr. Lissy Franco in [facility] n. Essential hypertension 10867987 I10 - Patient has white coat syndrome.- Currently on Valsartan 320/20 mg for blood pressure management .- Blood pressure monitoring and management to continue with PCP in [facility]. Mixed hyperlipidemia 267 321000 E78.2 - Currently on Atorvastat in 40 mg daily.- Lipid levels to be monitored by PCP in [facility]. Hypothyroidism 41369683 E03.9 - Currently on Levothyrox ine 125 mcg daily.- Thyroid function tests to be monitored by PCP in [facility]. Generalize d anxiety disorder 21188388 F41.1 - Patient carries a prescripti on for Lorazepam, used occasional ly.- No current need for additional anxiety management . Osteopenia 569881327 M85 .80 - Bone density scan on 01/31/2021 showed mild to moderate osteopenia .- Calcium levels were 10.3, advised to stop calcium supplement s by her PCP in [facility]. There was no calcium that I saw higher than this in her historical records- PTH level was 49, within normal range.- Liver function tests and alkaline phosphatas e levels were normal.- Continue weight-ricardo ring exercises and monitor bone health. Health Concerns Section Related Observation LastModified by Organization Detai ls LastModified Time None Recorded Concern Status LastModified by Organization Details LastModified Time None Recorded Advance Directives Directive Y: Payers Insurance Date Sequence Insurance Name Policy Number Policy Hernandez Covered Member ID Hernandez Member ID Guarantor Name 04/28/2024 1 [place] Vanessa Saxena [id number] Vanessa Saxena 04/28/2024 2 [employer] - SENIOR SERVICES PLAN F (MEDICARE SUPPLEMENT) [id number] Vanessa Saxena [id number] Vanessa Saxena Notes Date Note Type Note Provider Name and Address Organization Details Recorded Time 09/11/2022 text/html Establishing Car e for Chronic ConditionsReported bypatient.Notes:1. Currently residing in [place] comes down in the 4-5 months out of the year and occasionally in the summer to visit their daughter who is a teacher. She currently has a PCP is [place] that they wish to continue with, PAULA Ingram will be doing her yearly physical examinations, lab work and following any chronic disease. They will be using Dr. Pérez as needed while they are down in [place].2. HTN - patient reports good BP readings at home and has white coat syndrome. Of note she takes her BP meds at night because when she was taking them in the morning she found that she was crashing feeling fatigued in the afternoon but after switching to taking valsartan 320mg at night this is a non-issue.2. Allergies - patient reports that while in [place] her allergies seem to flair up and would like testing done in [place] for more area specific testing.3. Medication review - Patient would like her atorvastatin 40 reviewed. She was on 20mg but in 06/07 she had a triglyceride level of 177 which prompted the change to 40mg. Since then triglyceride level have been better 161 (02/06) and then 106 (07/09) at her last lab draw.4. Hard stick - Patient has to go to outside facilities to get stuck but does not require US guided. Rose Pérez MD [address], [place], [address], [facility] 09/11/2022 15:53:06 03/31/2024 text/html The patient is a 78-year-old female, with a history of HTN, HLD, hypothyroidism, anxiety, and osteopenia, presenting for follow-up. The [place] a [place] who also resides in [place] and continues care with her PCP there. She reports a history of white coat syndrome and allergies, for which she was referred to an safety glass installer. She found out that she has no allergies in [place]. She is currently taking amlodipine/valsartan 3/20 mg for blood pressure management, atorvastatin 40 mg for hyperlipidemia, and levothyroxine 125 mcg for hypothyroidism. She also has a prescription for lorazepam for anxiety, which she uses occasionally, noting less frequent use when she is more active. She reports that her last bone density scan was in January 2021, which showed mild to moderate osteopenia. She also mentions that her last mammogram was in November and was reported as normal for her age. She was advised to stop taking calcium supplements due to an abundance of calcium. She denies any issues with her current medications and has not reported any new symptoms or concerns. Rose Pérez MD [address], [place], [address], [facility] 03/31/2024 17:22:51 OBGyn Episode No OBEpisode recorded.
--- OUTSIDE RECORDS SUMMARY | 2024-07-08 10:28 | XMS_ITS | Patient Health Record ---
Author Organization [facility] Address [address] [place] [address] Care Team Providers Care Campaign Specialist Name Role Phone Lissy Carey Primary Care Provider Tung Green Unavailable [phone] Allergies Allergen (clinical drug ingredient) Drug/Non Drug Allergy documented on EMR Reaction Allergy Type Onset Date Status amoxicillin Amoxicillin Unknown Drug Allergy Act zohra insect stings (uncoded) Unknown Allergy Active Reason For Referral No Information Medications Medication SIG (Take, Route, Frequency, Duration) Notes Start Date End Date Status Fiber Active Atorvastatin Calcium 40 MG 1 tablet Orally Once a day Active Multi Vitamin/Minerals women 50 + Active Calcium + D 2per day Active Vitamin B12 Active Qunol Ultra CoQ10 Ac tive Equate Plus vision formula 50+ Active LORazepam 0.5 MG TAKE 1 TABLET DAILY NEEDED Oral for 90 Days Active PreserVision AREDS 2 Active Allergy Active Omeprazole 40 MG TAKE 1 CAPSULE DAILY Oral for 90 Days Active Synthroid 125 MCG TAKE 1 TABLET DAILY Oral for 90 Days Active Valsartan 320 MG TAKE 1 TABLET DAILY Oral for 90 Days Active Immunizations Vaccine Route Administration Date Status Comme nts Influenza Unknown 10/18/2017 Administered Social History Alcohol Screen Question Answer Notes [...] Positive Section Notes: Nonsmoker; occasional alcoho l Nonsmoker; occasional alcoho l Nonsmoker; occasional alcoho l Problems Problem Type SNOMED Code ICD Code Onset Dates Problem Status W/U Status Risk Notes Problem 518813888 Encounter for screening for malignant neoplasm of colon (Z12.11) Active confirmed Problem 723936873 History of adenomatous polyp of colon (Z86.010) Active confirmed Problem 750339322229017 Preprocedural examination (Z01.818) Active confirmed Problem 159656948 Long-term use of high-risk medication (Z79.899) Active confirmed Problem 48146157678738060 FPC current use of diuretic (Z79.899) Active confirmed Vital Signs Blood pressure diastolic 77 mm Hg 07/08/2024 Height 62 in 07/08/2024 Blood pressure systolic 111 mm Hg 07/08/2024 Weight 168 lbs 07/08/2024 BMI 30.72 kg/m2 07/08/2024 Procedures Procedure Date Ordered Date Performed Result Body Sit e COLONOSCOPY 07/08/2024 N/A Encounters Encounter Location Date Provider Diagnosis [facility] [address] [place] [address] 07/08/2024 Tung Allen History of adenomato us polyp of colon Z86.010 ; Encounter for screening for malignant neoplasm of colon Z12.11 and Preprocedural examination Z01.818 Assessments Encounter Date Diagnosis (ICD Code) Assessment Notes Treatment Notes Treatment Clinical Notes Section Notes 07/08/2024 Encounter for screening for malignant neoplasm [...] keep you advised of her progress. 07/08/2024 History of adenomatous polyp of colon [...] Test Test Name Order Date COLONOSCOPY 07/08/2024 Future Test Test Name Order Date COLONOSCOPY 12/27/2011 COLONOSCOPY 07/07/2018 Next Appt Details Provider Name:Tung Allen , 10/06/2024 07:30:00 AM, [address] [place] [address], [address], [place], [address], Insurance Providers Payer Name Payer Address Payer Phone Subscriber Number Group Number Insured Name Patient Relationship to Insured Coverage Start Date Coverage End Date MED[place]ARE OF [place] [address] [facility] [place] [address] [id number] MIHAI OSMANON Self - patient is the insured 2 [employer] Insurance (SpecifiedBy) [address] [place] [address] [phone] [id number] VANESSA OSMAN Self - patient is the insured Medical (General) History Medical History History ICD Code HTN Hyperlipidemia Gallstones found incidentall y on U/S done for elevated LFT's--reviewed again at the 07/07/18 OV Occasional GERD-uses Prilosec occasional ly Denies GA,DM,CVA,Lung disease,renal dise ase Hypothyroidism Screening colonoscopy Decemb er 2011 with a removal of a small tubular adenoma and hyperplastic polyp Negative screening colonoscopy in 2019 Surgical History Surgery Date(Month/Year) teeth extractions Partial thyroidectomy
--- OUTSIDE RECORDS SUMMARY | 2024-07-08 10:28 | XMS_ITS | Clinical Summary ---
Author Organization [facility] Address [address] [place] [address] Care Team Providers Care Insurance Claim Representative Name Role Phone Unavailable Primary Care Provider Unavailabl e Allergies Active Allergy Reactions Criticality Noted Date Comments Amoxicillin 06/27/2017 Vancomycin 06/27/2017 Medications Medication Sig Dispensed Refills Start Date End Date Status Multiple Vitamin (MULTI-VITAMIN) Orally 0 Active mometasone (ELOCON) 0.1 % ointment APPLY TO LIPS TWICE A DAY - 3 TIMES A DAY NEEDED FOR FLARES 0 11/12/2018 Active levothyroxine (SYNTHROID, LEVOXYL) tablet 125 mcgIndications:Hypothy roidism, unspecified type Take 1 tablet (125 mcg total) by mouth daily. 90 tablet 6 02/21/2020 Active LORazepam (ATIVAN) 0.5 MG tabletIndications:Anxi ety Take 1 tablet (0.5 mg total) by mouth every 6 (six) hours as needed. 60 tablet 0 02/21/2020 Active losartan (COZAAR) tablet 25 mgIndications:Essentia l hypertension Take 1 tablet (25 mg total) by mouth daily. 90 tablet 3 07/06/2020 Active Active Problems Problem Noted Date Diagnosed Date Anxiety 06/30/2018 Hypercholesterolemia 12/30/2017 GERD (gastroesophageal reflux disease) Hypertension Hypothyroidism Immunizations Name Administration Dates Next Due DTaP 06/27/2014 Influenza Quad (High Dose Fl uzone) 0.7mL >65Yrs (HD-IIV4) 11/17/2019 Influenza Trivalent (Fluzone High Dose) 0.7 mL (65yrs &>) 11/17/2018,11/10/2017 Influenza Trivalent (Fluzone /Afluria) 5.0mL Multi-dose Vial 11/27/2016 Pneumococcal Conjugate PCV13 06/27/2014 Family History Medical History Relation Name Comments Cancer Father skin Diabetes Father with neuropathy Cancer Mother colon mass Relation Name Status Comments Father Mother Social History Tobacco Use Types Packs/Day Years Used Date Smoking Tobacco: Never Smokeless Tobacco: Never Alcohol Use Standard Drinks/Week Comments Yes 0 (1 standard drink = 0.6 oz pur e alcohol) social Sex and Gender Information Value Date Recorded Sex Assigned at Female 01/26/2019 8:59 AM EST Gender Identity Female 01/26/2019 8:59 AM EST Sexual Orientation Straight 01/26/2019 8: 59 AM EST Job Start Date Occupation Industry Not on file Not on file Not on file Last Filed Vital Signs Vital Sign Reading Time Taken Comments Blood Pressure 130/80 07/06/2020 9:33 AM EDT Pulse 72 07/06/2020 9:33 AM EDT Temperature 36.8 ??C (98.2 ??F) 07/06/2020 9:33 AM ED T Respiratory Rate 16 07/06/2020 9:33 AM EDT Oxygen Saturation 98% 07/06/2020 9:33 AM EDT Inhaled Oxygen Concentration - - Weight 76.4 kg (168 lb 6.4 oz) 07/06/2020 9:33 A M EDT Height 157.5 cm (5' 2 ) 07/06/2020 9:33 AM EDT Body Mass Index 30.8 07/06/2020 9:33 AM EDT Plan of Treatment Health Maintenance Due Date Last Done Comments Hepatitis C Screening 1945 COVID-19 Vaccine (#1) 05/16/1946 Preventative Health Evaluation 1964 Shingrix-Zoster Vaccine (1 of 2) 1996 Osteoporosis Screening (DEXA Scan) 11/16/2011 Pneumococcal Vaccine (2 of 2 - PPSV23 or PCV20) 06/28/2015 06/27/2014 Depression Screening 01/27/2020 01/26/2019 Fall Risk Assessment 01/27/2020 01/26/2019 BMI Counseling 07/06/2021 07/06/2020, 01/17, 06/30/2018 RSV Adult > 60+ Yrs or (1 - 1-dose 75+ series) 2021 Influenza Vaccine (#1) 2023 0, 11/17/2019, 11/17/2018, Additional history exists DTap / Tdap / Td (2 - Tdap) 06/27/2024 06/27/2014 Hepatitis B Vaccines Aged Out No long er eligible based on patient's age to complete this topic RSV Ped < 20 months Aged Out No longe r eligible based on patient's age to complete this topic
[2024-07-08 13:51] LABS: Estimated Average Glucose 123 mg/dL; Hemoglobin A1C 153.1076 umol/L; Hemoglobin A1c % 5.9 % (<6.0); Total Hemoglobin (HGBA1C) 3734.2169 umol/L
[2024-07-08 13:59] LABS: Anion Gap 15 (12-20); Blood Urea Nitrogen 19 mg/dL (9-16); Carbon Dioxide 26 mmol/L (22-29); Chloride 107 mmol/L (96-108); Cholesterol 148 mg/dL (<200); Estimated Glomerular Filt Rate > 60; Glucose Random 95 mg/dL (60-115); HDL Cholesterol 55 mg/dL (>40); LDL Cholesterol Calculated 76 mg/dL (<100); Potassium 4.6 mmol/L (3.3-5.1); Sodium 143 mmol/L (135-145); Triglycerides 85 mg/dL (<150)
[2024-07-08 14:14] LABS: Thyroid Stimulating Hormone 0.44 uIU/mL (0.32-4.0)
== END 2024-07-08 10:06 | disposition home or self-care (01) ==
LOC: HO.10HDL 10:05
DX: R73.03 Prediabetes (principal); I10 Essential (primary) hypertension; E78.00 Pure hypercholesterolemia, unspecified; E03.9 Hypothyroidism, unspecified
CPT/HCPCS: 36415; 80048; 80061; 83036; 84443

== ENCOUNTER 2024-10-06 06:22 | Day surgery (SDC) | payer MEDICARE, OTHER, SELFPAY ==
--- OUTSIDE RECORDS SUMMARY | 2024-09-13 15:45 | XMS_ITS | Patient Health Record ---
Author Organization [facility] Address [address] [place] [address] Care Team Providers Care Burrer Operator Name Role Phone Lissy Carey Primary Care Provider Tung Green Unavailable [phone] Allergies Allergen (clinical drug ingredient) Drug/Non Drug [...] Problem Status W/U Status Risk Notes Problem 789220717 Encounter for screening for malignant neoplasm of colon (Z12.11) Active confirmed Problem 811713095 History of adenomatous polyp of colon (Z86.010) Active confirmed Problem 863727818679572 Preprocedural examination (Z01.818) Active confirmed Problem 617360687 Long-term use of high-risk medication (Z79.899) Active confirmed Problem 19769470853640441 longterm current use of diuretic (Z79.899) Active confirmed Vital Signs Blood pressure diastolic 77 mm Hg 07/08/2024 Height 62 in 07/08/2024 Blood pressure systolic 111 mm Hg 07/08/2024 Weight 168 lbs 07/08/2024 BMI 30.72 kg/m2 07/08/2024 Procedures Procedure Date Ordered Date Performed Result Body Sit e COLONOSCOPY 07/08/2024 N/A Encounters Encounter Location Date Provider Diagnosis [facility] [address] [place] [address] 07/08/2024 Tung Allen History of adenomato us polyp of colon Z86.010 ; Preprocedural examination Z01.818 and Encounter for screening for malignant neoplasm of colon Z12.11 Assessments Encounter Date Diagnosis (ICD Code) Assessment [...] Provider Name:Tung Allen , 10/06/2024 07:30:00 AM, [address] [place] [address] , [place], [place], [phone], Insurance Providers Payer Name Payer Address Payer Phone Subscriber Number Group Number Insured Name Patient Relationship to Insured Coverage Start Date Coverage End Date MEDICARE OF [place] [address] [place] [address] [id number] MIHAI OSMANON Self - patient is the insured 2 [employer] ([place]) [address] [place] [address] [id number] VANESSA OSMAN Self - patient is the insured Medical (General) History Medical History History ICD Code HTN Hyperlipidemia Gallstones found incidentall y on U/S done for elevated LFT's--reviewed again at the 07/07/18 OV Occasional GERD-uses Prilosec occasional ly Denies NE,DM,CVA,Lung disease,renal dise ase Hypothyroidism Screening colonoscopy Decemb er 2011 with a removal of a small tubular adenoma and hyperplastic polyp Negative screening colonoscopy in 2019 Surgical History Surgery Date(Month/Year) teeth extractions Partial thyroidectomy
--- OUTSIDE RECORDS SUMMARY | 2024-09-13 15:45 | XMS_ITS | Clinical Summary ---
Author Organization [facility] Address [address] [address] Phone Care Team Providers Care Manager Wealth Management Name Role Phone Lissy Carey NP Primary Care Provider [phone] Allergies Active Allergy Reactions Criticality Noted Date Comments Amoxicillin Unknown 08/29/2015 Clindamycin Hcl Unknown 08/29/2015 Vancomycin 06/27/2017 Medications potassium chloride (KLOR-CON) 20 mEq packet Take 20 mEq by mouth daily. with food Active losartan (COZAAR) 25 MG tablet Take 1 tablet by mouth daily. Active hydroCHLOROthia zide (HYDRODIURIL) 25 MG tablet Take 1 tablet by mouth daily. Active DOCOSAHEXANOIC ACID/EPA (FISH OIL ORAL) Active levothyroxine (SYNTHROID, LEVOTHROID) 125 MCG tablet Take 1 tablet by mouth daily. Active Medication-Free Text Vitamin E 1000 UNIT Tablet, Sig: Orally Active Medication-Free Text ASA Active Medication-Free Text Glucosamine Active multivitamin per tablet Orally Active MV,CALCIUM,MIN/ IRON/FOLIC/VITK (MULTI FOR HER ORAL) Orally Active valsartan (DIOVAN) 320 MG tablet Take 1 tablet by mouth every morning. 3 Active atorvastatin (LIPITOR) 40 MG tablet Take 40 mg by mouth daily. Active omeprazole (PRILOSEC) 40 MG capsule Take 40 mg by mouth daily. Active LORazepam (ATIVAN) 0.5 MG tablet Take 0.5 mg by mouth every 6 (six) hours as needed for anxiety. Active vitamins A,C,E-zinc-scooter er (PRESERVISION AREDS) 4,296 mcg-226 mg-90 mg Cap Take 1 capsule by mouth 2 (two) times a day with meals. Active mupirocin (BACTROBAN) 2 % ointment Active albuterol 90 mcg/actuation inhaler Inhale 2 puffs into the lungs every 6 (six) hours as needed for wheezing. 18 g Active Active Problems No known active problems Family History Medical History Relation Comments CV disease Father 2 Cancer Father 2 Diabetes mellitus Father 2 Hypertension Father 2 Relation Status Comments Father 1 Father 2 Social History Tobacco Use Types Packs/Day Years Used Date Smoking Tobacco: Never Smokeless Tobacco: Never Tobacco Cessation:Counseling Given: Not Answered Alcohol Use Standard Drinks/Week Comments Yes 0 (1 standard drink = 0.6 oz pur e alcohol) Education Answer Date Recorded Are you interested in more education? Not on jaya e 10/26/2022 Are you concerned about learning? Not on file 10/26/2022 No 10/26/2022 No 10/26/2022 Digital Access Answer Date Recorded No 10/26/2022 No 10/26/2022 Reliable internet access at home? Not on file 10/26/2022 Device with a working camera? Not on file Comments Unknown Sex and Gender Information Value Date Recorded Sex Assigned at Not on file Legal Sex Female 10:37 PM EDT Gender Identity Not on file Sexual Orientation Not on file Last Filed Vital Signs Vital Sign Reading Time Taken Comments Blood Pressure 152/76 02/08/2023 10:05 AM EST Pulse 77 02/08/2023 10:05 AM EST Temperature 36.8 C (98.2 F) 02/08/2023 10:05 AM EST Respiratory Rate 18 02/08/2023 10:05 AM EST Oxygen Saturation 97% 02/08/2023 10:05 AM EST Inhaled Oxygen Concentration - - Weight 77.1 kg (170 lb) 02/08/2023 10:05 AM EST Height 157.5 cm (5' 2 ) 02/08/2023 10:05 AM EST Body Mass Index 31.09 02/08/2023 10:05 AM EST Plan of Treatment Health Maintenance Due Date Last Done Comments CREATININE LEVEL 1945 LIPID PANEL 1946 POTASSIUM LEVEL 1946 TSH LEVEL 1946 DEPRESSION SCREENING 1958 HEPATITIS C SCREENING 1964 ZOSTER VACCINES (1 of 2) 1996 OSTEOPOROSIS SCREENING INITIAL (ONE-TIME) 11/16/2011 PNEUMOCOCCAL VACCINES (50+ years) (2 of 2 - PPSV23) 11/06/2016 11/07/2015, 06/27/2014 RSV VACCINE (1 - 1-dose 75+ series) 2021 COVID-19 VACCINE (6 - 2023- season) 2023 12/10/2021, 06/22/2021, 11/23/2020, Additional history exists Adult Td,Tdap Booster 07/06/2031 07/05/2021, 016 SMOKING STATUS SCREENING (Once After 26 Yrs) Completed 02/08/2023 HEPATITIS A VACCINES Aged Out No long er eligible based on patient's age to complete this topic HIB VACCINES Aged Out No longer eligi ble based on patient's age to complete this topic MENINGOCOCCAL VACCINES (ACWY) Aged Out No longer eligible based on patient's age to complete this topic MENINGOCOCCAL VACCINES (B) Aged Out N o longer eligible based on patient's age to complete this topic Medical Devices Not on file Insurance [place] [id number] [facility] [employer]ION MEDICARE SUPPLEMENT MEDICARE PART A & B Member Subscriber Plan / Payer ( fective 2011-Present) Name:Adrien Saxenaon Member ID:[id number] Relation to Subscriber:Self Name:Vanessa Saxena Subscriber ID:[id number] Payer ID:[id number] Group ID:Not on file Type:Medicare Address: [employer] [address] MEDICARE SUPPLEMENT MEDICARE PART A & B Member Subscriber Plan / Payer ( fective 2011-Present) Name:Adrien Saxenaon Member ID:[id number] Relation to Subscriber:Self Name:Vanessa Saxena Subscriber ID:[id number] Payer ID:[id number] Group ID:Not on file Type:Medicare Address: [employer] [address] [place] [phone] MEDICARE PART A & B MEDICARE PART A & B [employer] MEDICARE SUPPLEMENT MEDICARE PART A & B MEDICARE PART A & B [email or web address] EXTENSION MEDICARE SUPPLEMENT MEDICARE PART A & B [email or web address] EX[employer]ION MEDICARE SUPPLEMENT MEDICARE PART A & B [facility] [employer]ION MEDICARE SUPPLEMENT Care Teams Manager Wealth Management Relationship Specialty Start Date End Date Lissy Carey NP [address] [place] [phone] [email or web address] PCP - General Nurse Practitioner 10/26/22 Additional Source Comments The information contained in this document represents components of the legal health record. It is not the complete legal health record.[facility]
--- OUTSIDE RECORDS SUMMARY | 2024-09-13 15:45 | XMS_ITS | Data Portability ---
Author Organization [place] - [employer], [employer], [facility] Address [address] [place] [address] Care Team Providers Care Offal Trimmer Name Role Phone ROSE PÉREZ Referring Provider Unavailable LISSY CAREY Primary Care Provider LAKIA BARNHART Straight Line Edger Assessment No assessment recorded. Plan of Treatment Reminders Order Date Submit Date Provider Last Modified By Organization Details Last Modified Time Details Appointments ESTABLISH ED OV 30 2025 02:15P M DR ROSE PÉREZ Not available Not available Not available Lab None recorded. Referral screen making technician referral - First avail provider for [place] with [place] allergies . Would like to be tested. 2022 023 RADHA Chew MD ([facility]), [address], [address], [place], [address], 09/11/2022 17:00:58 Procedures None recorded. Surgeries None recorded. Imaging None recorded. Medication Orders None recorded. Patient TargetsNo targets recorded. Patient Instructions Encounter Date Encounter Id Patient Instructions Last Modified By Organization Details Last Modified Time 03/31/2024 [id number] medical record request* - I am specifically [...] with your primary care provider (PCP) in [place]. We discussed your hyperlipidemia: - Continue taking [...] - Continue care with your PCP in [place], including routine monitoring of your thyroid, cholesterol, and bone health. - Your next mammogram is due in November, as you have them annually. Ensure this is scheduled with your PCP. - If you experience any new or worsening symptoms, please contact our office or your PCP. [email or web address] Not available 03/31/2024 17:22:03 Reason for Referral City [facility]anner Referral for Envir onmental allergy First avail provider for [place] with [place] allergies. Would like to be tested. Referring Physician: Rose Pérez, Family Medicine, Encounter Date: 09/11/2022 Problems Name Problem SNOMED Code Status Onset Date Resolution Date Notes Provider Name and Address Organization Details Recorded Time Hyperlipidemia 02169425 Active [address], [place], [address], [facility] - [employer] [facility], [employer] 3 15:18:32 Hypothyroidism 34548077 Active [address], [place], [address], [facility] - [facility], [facility] 3 15:18:32 Hypertensive disorder 18041713 Active [address], [place], [address], [facility], [facility] 3 15:18:32 Anxiety disorder 762563576 Active 2022 [address], [place], [address], [facility], [facility] 3 15:18:39 Environmental allergy 632523054 Active 2022 Season al, worse in [place]. Rose Min [address] [employer] [address], [place], [address], [facility], [facility] 3 15:22:22 Problem Notes None recorded. Procedures Surgical History Date Name Laterality Status Provider Name and Address Organization Details Recorded Time 12/12/19 24 Date of Last Mammogram completed Grace Mattson [facility] 03/31/2024 14:44:47 11/18/19 24 mammography completed Rose [address], [place], [address], [facility], [facility] 03/31/2024 15:04:36 01/18/20 21 screening for osteoporosis completed Rose Webbkler [employer], [place], [address], [facility], [facility] 03/31/2024 15:07:00 08/17/18 80 thyroidectomy completed Jessica Villarreal [facility] 09/11/2022 14:36:02 Imaging Results None recorded. Procedure Notes None recorded. Medical Equipment None Reported. Allergies Allergen ID Allergen Name Allergen Category Reaction Reaction Severity Criticality Documentation Date Start Date Code Code System Note Provider Name and Address Organization Details Recorded Time 7514919 amlodipin e medicatio n edema moderate high 09/11/2022 69224 RxNorm Rose Rivers[address], [place], [address], [facility], [facility] 3 15:50:32 2169382 amoxicill in medicatio n itching rash Not available Not available Not available 09/11/2022 723 RxNorm Jessica perez [place] - [facility], [facility] 3 14:14:09 Medications Name Sig Start [...] weight Body mass index (BMI) Body height Pain severity - 0-10 verbal numeric rating [Score] - Reported Body temperature Heart rate Oxygen saturation Oxygen saturation in Arterial blood by Pulse oximetry Systolic And Diastolic Provider Name and Address Organization Details Last Updated DateTime 5 25911.6 7 g 30.3 kg/m2 158.75 cm 0 97.4 [degF] 71 /min 97 % 97 % 132/74 mm[Hg] Grace Mattson [place] - [facility], [facility] 5 14:48:30 Date Recorded Body weight Body mass index (BMI) Body height Respiratory rate Pain severity - 0-10 verbal numeric rating [Score] - Reported Body temperature Heart rate Oxygen saturation Oxygen saturation in Arterial blood by Pulse oximetry Systolic And Diastolic Provider Name and Address Organization Details Last Updated DateTime 3 21148.5 5 g 30.5 kg/m2 158.75 cm 16 /min 0 98 [degF] 78 /min 97 % 97 % 136/64 mm[Hg] Jessica elliott [facility], [facility] 14:26:03 Social History Question Answer Notes LastModified by Organizat ion Details LastModified Time Tobacco Smoking Status Never Smoker Jessiacpravin Kwnogmichelle perez, [facility], [facility] 09/11/2022 14:14:10 Do You Have An [...] Or The Highest Degree You Have Received? [id number] Information not available 09/11/2022 Do You Have [...] not available 09/11/2022 Where Do You Live? [place] [facility] Information not available 09/11/2022 Alcohol Use 1-2 Per Month Informati on not available 09/11/2022 Do You Smoke? No [facility] In[facility] n not available 09/11/2022 Do You Have A Medical Power Of Regulatory Affairs Specialist? Yes Information not available 09/11/2022 What Was [...] 09/11/2022 Are you able to care for yourself independently? Yes Information not available 09/11/2022 What is your exercise level? Moderate Information not available 09/11/2022 Mental Status None recorded. Family History Nothing Reported. Medical History Condition Response Diabetes N Amputation (location) N Arthritis Y Allergies (other than meds) Y Gynecological History Statement/Question Response Menses Monthly N STIs/STDs N If Post Menopausal, Age at Menopause 54 Date of Last Mammogram 12/12/2023 Age at First Child 26 Obstetrics History GPAL:G 0 P 0 0 0 0 Immunizations Vaccine Type Date Status Note Provider Nam e and Address Organization Details Recorded Time influenza, unspecified formulation 11/20/2023 completed Grace Mattson [place], [place] - [facility], [facility] 03/31/2024 14:44:18 Past Encounters Encounter ID Performer Location Encounter Start Date Encounter Closed Date Diagnosis/Indication Diagnosis SNOMED-CT Code Diagnosis ICD10 Code Diagnosis Note [id number] Rose Pérez MD [facility] [address] [place] [address] 09/11/2022 14:05:57 09/11/2022 16:05:45 Environmental allergy 535266117 T78.49XA New patient today with [place] allergies. Would like to be tested. Hypertensive disorder 38 511772 I10 New patient today. Blood pressure under control on current medication , continue Hyperlipidemia 81734431 E78.5 current LDL 71 on ator 40. Hypothyroidism 66583261 E03.9 New patient to [place] today, no change to current thyroid medication [id number] [facility] [address] [place] [address] 03/31/2024 14:08:11 03/31/2024 15:28:04 Patient medical record not available [id number] Z76.89 - Patient's medical records from [facility] are not currently available. - Initiated a request for missing medical records from Dr. Lissy Carey in [facility] n. Essential hypertension 03728832 I10 - Patient has white coat syndrome.- Currently on Valsartan 320/20 mg for blood pressure management .- Blood pressure monitoring and management to continue with PCP in [facility]. Mixed hyperlipidemia 267 077087 E78.2 - Currently on Atorvastat in 40 mg daily.- Lipid levels to be monitored by PCP in [facility]. Hypothyroidism 14004495 E03.9 - Currently on Levothyrox ine 125 mcg daily.- Thyroid function tests to be monitored by PCP in [facility]. Generalize d anxiety disorder 28759781 F41.1 - Patient carries a prescripti on for Lorazepam, used occasional ly.- No current need for additional anxiety management . Osteopenia 010817632 M85 .80 - Bone density scan on 01/31/2021 showed mild to moderate osteopenia .- Calcium levels were 10.3, advised to stop calcium supplement s by her PCP in [facility]. There was no calcium that I [...] Name 04/28/2024 1 [place] Vanessa Saxena [id number] Vanessa Saxena 04/28/2024 2 [facility] (MEDICARE SUPPLEMENT) [id number] Vanessa Saxena [id number] Vanessa Saxena OBGyn Episode No OBEpisode recorded.
--- OUTSIDE RECORDS SUMMARY | 2024-09-13 15:45 | XMS_ITS | Clinical Summary ---
Author Organization [facility] Address [address] [place] [address] Care Team Providers Care Site Surveyor Name Role Phone Unavailable Primary Care Provider [...] 72 07/06/2020 9:33 AM EDT Temperature 36.8 C (98.2 F) 07/06/2020 9:33 AM EDT Respiratory Rate 16 07/06/2020 9:33 AM EDT [...] or (1 - 1-dose 75+ series) 2021 DTap / Tdap / Td (2 - Tdap) 06/27/2024 06/27/2014 Influenza Vaccine (#1) 2024 0, 11/17/2019, 11/17/2018, Additional history exists Hepatitis B Vaccines Aged Out No long er eligible based on patient's age to complete this topic RSV Ped < 20 months Aged Out No longe r eligible based on patient's age to complete this topic
[2024-10-04 14:21] VITALS: BMI 30.7
--- NOTE | 2024-10-05 08:40 | HO.ANESPROP2 ---
Documented by User: Vicky Sotelo NP 10/05/24 08:41 HPI - Anesthesia Eval Consult details Narrative: 78yo F for Colonoscopy [facility] Past Medical History Medical History Hypothyroid Hyperlipidemia HTN (hypertension) Surgical History Surgical History Hx of partial thyroidectomy H/O colonoscopy Social History Social History Household Members: Spouse Are you a primary healthcare economics manager to a significant other at home: No Do you presently have visiting nurse or other home services: No Patient Tobacco Use Status: Never used Tobacco Have you been hit, kicked, punched, or otherwise hurt by someone within the past year? If so, by whom?: No Are you DNR?: No Advance Directives: No Advance Directives Information Provided: Yes Poor oral hygiene: No Meds Allergies Allergy/AdvReac Type Severity Reaction Status Date / Time amoxicillin (Amoxicillin) Allergy Severe DIARRHEA Verified 10/06/24 06:46 Home Medications ?Medication ?Instructions ?Recorded ?Confirmed ?Last Taken ?Type atorvastatin 40 mg tablet 40 mg PO DAILY 10/04/24 10/04/24 Unknown History levothyroxine 125 mcg tablet 125 mcg PO DAILY 10/04/24 10/04/24 Unknown History (Synthroid) lorazepam 0.5 mg tablet 0.5 mg PO DAILY PRN Anxiety 10/04/24 10/04/24 Unknown History omeprazole 40 mg capsule,delayed 40 mg PO DAILY 10/04/24 10/04/24 Unknown History release valsartan 320 mg tablet 320 mg PO DAILY 10/04/24 10/04/24 Unknown History Exam Height,Weight and Vital Signs: Height 5 ft 2 in Weight 76.204 kg Assessment and Plan Assessment Anesthesia Assessment: Chart Reviewed Documented by User: Alec Fairbanks MD 10/06/24 07:21 PMFSH Past Medical History Medical History Hypothyroid Hyperlipidemia HTN (hypertension) Functional capacity: independent ambulation Family History Family history of problems with anesthesia: No Surgical History Surgical History Hx of partial thyroidectomy H/O colonoscopy History of Problems with Anesthesia: No Social History Social History Household Members: Spouse Are you a primary healthcare economics manager to a significant other at home: No Do you presently have visiting nurse or other home services: No Patient Tobacco Use Status: Never used Tobacco Have you been hit, kicked, punched, or otherwise hurt by someone within the past year? If so, by whom?: No Are you DNR?: No Advance Directives: No Advance Directives Information Provided: Yes Poor oral hygiene: No Meds Allergies Allergy/AdvReac Type Severity Reaction Status Date / Time amoxicillin (Amoxicillin) Allergy Severe DIARRHEA Verified 10/06/24 06:46 Home Medications ?Medication ?Instructions ?Recorded ?Confirmed ?Last Taken ?Type atorvastatin 40 mg tablet 40 mg PO DAILY 10/04/24 10/04/24 Unknown History levothyroxine 125 mcg tablet 125 mcg PO DAILY 10/04/24 10/04/24 Unknown History (Synthroid) lorazepam 0.5 mg tablet 0.5 mg PO DAILY PRN Anxiety 10/04/24 10/04/24 Unknown History omeprazole 40 mg capsule,delayed 40 mg PO DAILY 10/04/24 10/04/24 Unknown History release valsartan 320 mg tablet 320 mg PO DAILY 10/04/24 10/04/24 Unknown History Exam Exam Date and Time: 10/06/2024 Airway Mallampati Class: II TM Dist: >3cm Partial: Upper Loose/Missing/Broken Teeth: Yes (one tooth upper covered with prosthetic tooth) Heart: rrr Lungs: cta Assessment and Plan Final Anesthetic Review Family History of Problems with Anesthesia: No History of Problems with Anesthesia: No ASA Class: II Final Preanesthetic Review: No Changes in Pt Med Stat, Meds/Allgs Chart Reviewed, Consent Obtained/Reviewed and Anes Risks/Benef Reviewed Patient Risk: Low Procedure Risk: Low Anesthetic Plan Anesthetic Plan: MAC: Disposition: Standard PACU
[2024-10-06 06:44] VITALS: BMI 30.2
[2024-10-06 06:45] VITALS: BP 131/70; PULSE 108; RESP 18; TEMP 36.7; O2SAT 96
[2024-10-06] MEDS: Lactated Ringers 1,000 ML 100 ML IVCONT (06:51)
[2024-10-06 08:27] VITALS: PULSE 106; RESP 16; TEMP 36.9; O2SAT 96
--- NOTE | 2024-10-06 08:33 | PM.OP ---
Brief Operative Note Date of Service: 10/06/24 Pre-op diagnosis: Screening Post-op diagnosis: other (Diverticulosis) Procedure: Colonoscopy to the cecum and TI Surgeon: Tung Allen MD Anesthesia: MAC Was an [employer] Archeology Professor used for this Procedure?: No Estimated blood loss (mL): 0 Pathology: none sent Condition: stable Disposition: PACU
[2024-10-06 08:42] VITALS: BP 102/70; PULSE 110; RESP 20; TEMP 36.6; O2SAT 97
--- NOTE | 2024-10-06 08:55 | OP_ITS ---
DATE OF SERVICE: 10/06/2024 SURGEON: Tung Allen MD INDICATIONS: The patient presents for evaluation of a personal history of a tubular adenoma of the colon, family history of colon cancer, and need for colorectal cancer screening. Full consent was obtained from her for this, including risks of bleeding and perforation. PREOPERATIVE DIAGNOSIS: POSTOPERATIVE DIAGNOSIS: PROCEDURE PERFORMED: Colonoscopy to the cecum and terminal ileum. ESTIMATED BLOOD LOSS: COMPLICATIONS: ANESTHESIA: Medication used, monitored anesthesia care. ASSISTANTS: SPECIMENS: PREOPERATIVE DIAGNOSES: Colorectal cancer screening, personal history of tubular adenoma of the colon, family history of colon cancer. POSTOPERATIVE DIAGNOSES: Colorectal cancer screening, personal history of tubular adenoma of the colon, family history of colon cancer, small cecal angiodysplasia, diverticulosis and internal hemorrhoids. DESCRIPTION OF PROCEDURE: The patient was placed in the left lateral decubitus position. The digital rectal exam revealed no abnormalities. The Olympus video pediatric colonoscope was entered into the rectum, advanced easily to the cecum. Once in the cecum I did identify normal-appearing cecal pouch with appendiceal orifice and a normal-appearing ileocecal valve. The entire cecum appeared normal other than a nonbleeding several mm angiodysplasia. The terminal ileum was cannulated and appeared normal. Scope was withdrawn back in the colon. The scope was slowly withdrawn assessing all mucosal surfaces carefully. Preparation was excellent. I did not visualize, colitis, nor any other angiodysplasia. There was a moderate amount of sigmoid diverticulosis. In the rectum, scope was retroflexed visualizing internal hemorrhoids, but no other pathology. The rectal mucosa appeared normal. The scope was straightened and withdrawn from the patient. She tolerated the procedure well and was returned to recovery area in stable condition. IMPRESSION: 1. Nonbleeding small cecal angiodysplasia. 2. Diverticulosis. 3. Internal hemorrhoids. PLAN: Given her age and today's negative exam, I do not think she will need any further screening colonoscopy. She will otherwise see me on a p.r.n. basis. MD EDMUNDO Philippe/LEONELA / [phone]
== END 2024-10-06 09:26 | disposition home or self-care (01) ==
PROVIDERS: PCP Physician Assistant; Visit Provider Internal Medicine
PROC: 0DJD8ZZ Inspection of Lower Intestinal Tract, Via Natural or Artificial Opening Endoscopic (ICD-10-PCS; CPT 45378; principal; 2024-10-06 07:30)
DX: Z12.11 Encounter for screening for malignant neoplasm of colon (principal); K55.20 Angiodysplasia of colon without hemorrhage; K57.30 Diverticulosis of large intestine without perforation or abscess without bleeding; K64.8 Other hemorrhoids; Z86.0100 Personal history of colon polyps, unspecified; Z86.0101 Personal history of adenomatous and serrated colon polyps; I10 Essential (primary) hypertension; E78.5 Hyperlipidemia, unspecified; E03.9 Hypothyroidism, unspecified; Z80.0 Family history of malignant neoplasm of digestive organs; Z79.02 Long term (current) use of antithrombotics/antiplatelets; Z79.899 Other long term (current) drug therapy
CPT/HCPCS: G0105; J2003; J2704; J3010

== ENCOUNTER 2024-12-17 10:19 | Outpatient (REF) | payer MEDICARE, OTHER, SELFPAY ==
--- OUTSIDE RECORDS SUMMARY | 2024-10-06 03:30 | XMS_ITS ---
Author Organization [facility] Address [address] [place] [address] Care Team Providers Care Signal Inspector Name Role Phone Lissy Carey Primary Care Provider Tung Green [phone] REASON FOR VISIT screening,hx polyps Encounters Encounter Location Date Provider Diagnosis [facility] Outpatient [address], [place] [phone] 10/06/2024 Tung Allen Plan Of Treatment No Information Progress Notes * RADHIKA OSMANOB:1945 (79 yo F)Acc No.[id number]:10/06/2024 COLON WITH MAC Patient: CHHAYA PALAFOX Provider: Иван Allen MD :1945 A ge:78 Y S ex:Female Date:10/06/2024 Address:[address] [facility] Pcp:Lissy Carey Subjective: * Chief Complaints: * 1 . Screening,hx polyps. * Medical History: Objective: * Vitals: Assessment: Plan: * Treatment: * * The named appointment provid er may or may not be the originator of this progress note, and it is not deemed complete until electronically signed by the appointment provider. Sign off status: Pending * Provider: Иван Allen MD Date: 0 10/06/2024 Generated for Daysii ng/Faomarg/eTransmitting on: 1 11:40 AM EDT
--- NOTE | ~2024-12-17 | MM_ITS ---
EXAMINATION: MM SCREENING DIGITAL BREAST TOMOSYNTHESIS, BILATERAL CLINICAL INFORMATION: Screening. Asymptomatic. COMPARISON: Mammography: Comparison is made with available priors TECHNIQUE: Digital breast mammography with tomosynthesis is performed in both the craniocaudal and mediolateral oblique views along with computer-aided detection (CAD). FINDINGS: There are scattered areas of fibroglandular density. Bilateral scattered asymmetries are stable. There are no significant masses, abnormal calcifications, or other abnormalities. MM/MM tomosynthesis screening BI IMPRESSION: No mammographic evidence of malignancy. ASSESSMENT: BI-RADS Category 2: Benign RECOMMENDATION: Routine annual mammography screening. 1 year F/U This examination should not preclude the clinical evaluation of a suspicious palpable abnormality. This patient's information was entered into a reminder system with a target due date for their next mammogram. Electronically signed by: Peyton Dupree DO 12/20/2024 02:51 PM JUVENCIO
--- OUTSIDE RECORDS SUMMARY | 2024-12-17 11:40 | XMS_ITS | Clinical Summary ---
Author Organization [facility] Address [address] [address] Phone Care Team Providers Care Avionics Integration Engineer Name Role Phone Lissy Carey NP Primary Care Provider [phone] Allergies Active Allergy Reactions Criticality Noted Date [...] VACCINE (1 - 1-dose 75+ series) 2021 INFLUENZA VACCINE (#1) 2024 , 11/26/2020, 11/17/2019, Additional history exists COVID-19 VACCINE ( - 2024- season) 2024 12/10/2021, 06/22/2021, 11/23/2020, Additional history exists Adult [...] file Insurance MEDICARE PART A & B [facility] MEDICARE SUPPLEMENT MEDICARE PART A & B MEDICARE SUPPLEMENT MEDICARE PART A & B MEDICARE PART A & B MEDICARE PART A & B MEDICARE SUPPLEMENT [place] [id number] MEDICARE PART A & B MEDICARE PART A & B [employer] MEDICARE SUPPLEMENT MEDICARE PART A & B [facility] [employer] MEDICARE SUPPLEMENT MEDICARE PART A & B [facility] MEDICARE SUPPLEMENT Care Teams Avionics Integration Engineer Relationship Specialty Start Date End Date Lissy Carey NP [address] [place] [id number] [email or web address] PCP - General Nurse Practitioner 10/26/22 Additional Source Comments The information contained in this document represents components of the legal health record. It is not the complete legal health record.[facility]
--- OUTSIDE RECORDS SUMMARY | 2024-12-17 11:40 | XMS_ITS | Clinical Summary ---
Author Organization [facility] Address [address] [place] [address] Care Team Providers Care Supplies Packer Name Role Phone Unavailable Primary Care Provider [...]
--- OUTSIDE RECORDS SUMMARY | 2024-12-17 11:40 | XMS_ITS | Patient Health Record ---
Author Organization [facility] Address [address] [place] [id number] Care Team Providers Care Upsetter Name Role Phone Lissy Carey Primary Care Provider Tung Green Unavailable [phone] Allergies Allergen (clinical drug ingredient) Drug/Non Drug [...] 0.5 MG TAKE 1 TABLET DAILY NEEDED Oral; Duration: 90 Days Active PreserVision AREDS 2 Active Allergy Active Omeprazole 40 MG TAKE 1 CAPSULE DAILY Oral; Duration: 90 Days Active Synthroid 125 MCG TAKE 1 TABLET DAILY Oral; Duration: 90 Days Active Valsartan 320 MG TAKE 1 TABLET DAILY Oral; Duration: 90 Days Active Immunizations Vaccine Route Administration [...] Problem Status W/U Status Risk Notes Problem Screening for malignant neoplasm of colon (360007037) Encounter for screening for malignant neoplasm of colon (Z12.11) Active confirmed Problem History of adenomatous polyp of colon (983256079) History of adenomatous polyp of colon (Z86.010) Active confirmed Problem Preprocedural examination (914250663001354) Preprocedural examination (Z01.818) Active confirmed Problem Long-term current use of drug therapy (402385728) Long-term use of high-risk medication (Z79.899) Active confirmed Problem Long-term current use of drug therapy (841959687) auto body painter current use of diuretic (Z79.899) Active confirmed Vital Signs Blood pressure diastolic 77 mm Hg 07/08/2024 Height 62 in 07/08/2024 Blood pressure systolic 111 mm Hg 07/08/2024 Weight 168 lbs 07/08/2024 BMI 30.72 kg/m2 07/08/2024 Procedures Procedure Date Ordered Date Performed Result Body Sit e COLONOSCOPY 07/08/2024 N/A Encounters Encounter Location Date Provider Diagnosis [facility] Out[place] [address] [place] [phone] 10/06/2024 Tung Allen [facility] [address] [facility] [address] [place] [address] 07/08/2024 Tung Allen History of adenomato us [...] Name Order Date COLONOSCOPY 12/27/2011 COLONOSCOPY 07/07/2018 Insurance Providers Payer Name Payer Address Payer Phone Subscriber Number Group Number Insured Name Patient Relationship to Insured Coverage Start Date Coverage End Date MEDICARE OF [place] [address] [place] [address] [id number] MIHAI OSMANON Self - patient is the insured 2 [employer] ([employer]) [address] [place] [address] [id number] VANESSA OSMAN Self - patient is the insured Medical (General) History Medical History History ICD Code HTN Hyperlipidemia Gallstones found incidentall y on U/S done for elevated LFT's--reviewed again at the 07/07/18 OV Occasional GERD-uses Prilosec occasional ly Denies [place],DM,CVA,Lung disease,renal dise ase Hypothyroidism Screening colonoscopy Decemb er 2011 with a removal of a small tubular adenoma and hyperplastic polyp Negative screening colonoscopy in 2019 Surgical History Surgery Date(Month/Year) teeth extractions Partial thyroidectomy
== END 2024-12-17 10:20 | disposition home or self-care (01) ==
LOC: HO.MAMMO 10:19
PROVIDERS: PCP Nurse Practitioner Family; Visit Provider Nurse Practitioner
DX: Z12.31 Encounter for screening mammogram for malignant neoplasm of breast (principal)
CPT/HCPCS: 77063; 77067

== ENCOUNTER → 2024-12-17 10:30 | Outpatient (BNV) | payer MEDICARE, OTHER, SELFPAY | PROVIDERS: PCP Nurse Practitioner Family; Visit Provider Internal Medicine | DX: Z12.31 Encounter for screening mammogram for malignant neoplasm of breast (principal) | CPT/HCPCS: 77063; 77067 ==